=== PATIENT | female | born 1995 | race Two or more races ===

== ENCOUNTER 2023-02-19 08:05 | Inpatient (IN) | payer OTHER ==
[2023-02-19] MEDS: ELECTROLYTE-148 SOLN 1,000 ML IV SCH ×2 (09:00→17:50)
[2023-02-19 09:51] LABS: BASO % 0.4 % (0-2.0); EOS % 1.6 % (0-4.5); HEMATOCRIT 36.9 % (32.4-45.2); HEMOGLOBIN 12.2 GM/dL (10.7-15.3); LYMPH % 18.1 % (8-40); MCH 30.2 pg (25.7-33.7); MCHC 33.1 g/dl (32.0-36.0); MEAN CELL VOLUME 91.1 fl (80-96); MEAN PLT VOLUME 6.9 fl (7.5-11.1); NEUT % 71.9 % (42.8-82.8); PLATELET COUNT 189 10^3/uL (134-434); RBC 4.05 M/mm3 (3.60-5.2); RDW 14.3 % (11.6-15.6); WHITE BLOOD COUNT 5.6 K/mm3 (4.0-10.0)
[2023-02-19 09:52] LABS: POTASSIUM 3.4 mmol/L (3.5-5.1)
[2023-02-19 09:53] LABS: CALCIUM 8.6 mg/dL (8.5-10.1)
[2023-02-19 09:54] LABS: BLOOD UREA NITROGEN 11.1 mg/dL (7-18)
[2023-02-19 09:55] LABS: INR 0.95 (0.83-1.09)
[2023-02-19 09:57] LABS: CREATININE 0.6 mg/dL (0.55-1.3)
[2023-02-19 09:58] LABS: ACTIVATED PTT 25.5 SECONDS (25.2-36.5)
[2023-02-19] MEDS ORDERED: AMPICILLIN - 2 GM in SODIUM CHLORIDE 100 ML IVPB ONE (10:00)
[2023-02-19] MEDS ORDERED: OXYTOCIN 30 UNITS in 0.9% NS 30 UNIT/500 ML INFUS.BAG IVPB ONE ×2 (10:10→21:57)
[2023-02-19] MEDS ORDERED: AMPICILLIN SODIUM 2 GM VIAL ONE (10:10)
[2023-02-19] MEDS ORDERED: OXYTOCIN 30 UNITS in 0.9% NS 30 UNIT/500 ML INFUS.BAG IVPB SCH (10:10)
[2023-02-19 10:29] VITALS: BMI 25.7
[2023-02-19 12:48] LABS: HIV INTERPRETATION NEGATIVE (NEGATIVE)
[2023-02-19] MEDS ORDERED: AMPICILLIN SODIUM 1 GM VIAL ONE ×2 (13:35→18:28)
[2023-02-19] MEDS: AMPICILLIN - 1 GM in SODIUM CHLORIDE 100 ML IVPB SCH ×2 (14:05→18:34)
[2023-02-19] MEDS ORDERED: PROMETHAZINE HCL 25 MG/1 ML VIAL IVPB ONE (15:05)
[2023-02-19] MEDS ORDERED: BUTORPHANOL TARTRATE 2 MG/ML VIAL IVPB ONE (15:05)
[2023-02-19] MEDS ORDERED: FENTANYL/BUPIVACAINE/NS/PF - PCEA - 50 ML DISP.SYRIN EP ONE ×2 (16:57→22:03)
[2023-02-19] MEDS ORDERED: FENTANYL/BUPIVACAINE/NS/PF - PCEA - 50 ML DISP.SYRIN EP SCH (17:30)
[2023-02-19] MEDS ORDERED: NALOXONE HCL 0.4 MG/ML VIAL IVPUSH PRN (17:30)
[2023-02-19] MEDS ORDERED: ePHEDrine SULFATE 50 MG/1 ML AMPULE ONE (17:54)
[2023-02-19] MEDS ORDERED: SODIUM CHLORIDE 0.9% P/F 10 ML VIAL IJ ONE ×2 (17:55→22:12)
[2023-02-19] MEDS ORDERED: CITRIC ACID/SODIUM CITRATE 30 ML UNIT-DOSE CUP PO ONE (20:29)
[2023-02-19] MEDS ORDERED: ELECTROLYTE-148 SOLN 1,000 ML IV SCH (20:30)
[2023-02-19] MEDS ORDERED: SODIUM BICARBONATE 8.4% 50 MEQ/50 ML VIAL ONE ×2 (21:57→22:12)
[2023-02-19] MEDS ORDERED: morphine SULFATE/PF 1 MG/2 ML (2cc Syringe - QUVA) ONE (22:12)
[2023-02-19] MEDS ORDERED: ceFAZolin SODIUM 1 GM VIAL ONE (22:12)
[2023-02-19] MEDS ORDERED: FENTANYL CITRATE/PF 50 MCG/ML VIAL ONE ×2 (22:12→22:39)
[2023-02-19] MEDS ORDERED: ONDANSETRON 4 MG/2 ML VIAL ONE (22:12)
[2023-02-19] MEDS ORDERED: KETOROLAC TROMETHAMINE 30 MG/1 ML VIAL ONE (23:21)
[2023-02-19] MEDS ORDERED: morphine SULFATE/PF 1 MG/2 ML (2cc Syringe - QUVA) IT ONE (23:47)
[2023-02-19] MEDS ORDERED: ONDANSETRON 4 MG/2 ML VIAL IVPUSH PRN (23:47)
[2023-02-19] MEDS ORDERED: ACETAMINOPHEN 1000 MG/100 ML BAG IVPB PRN (23:48)
[2023-02-19] MEDS ORDERED: METHYLERGONOVINE MALEATE 0.2 MG/1 ML AMP IM PRN (23:59)
[2023-02-19] MEDS ORDERED: ACETAMINOPHEN 325 MG TABLET (FP) PO PRN (23:59)
[2023-02-19] MEDS ORDERED: IBUPROFEN 800 MG/8 ML IJ IVPB PRN (23:59)
[2023-02-20] MEDS ORDERED: OXYTOCIN 20 UNITS in 0.9% NS 20 UNIT/1,000 ML INFUS.BAG IV ONE (01:51)
[2023-02-20] MEDS: OXYTOCIN 20 UNITS in 0.9% NS 20 UNIT/1,000 ML INFUS.BAG IV SCH ×2 (01:55→09:52)
[2023-02-20] MEDS: PRENATAL VITAMINS W/ FOLIC ACID TABLET (FP) PO SCH (09:50)
[2023-02-20] MEDS: FERROUS SO4 325 MG TABLET (FP) PO SCH ×2 (09:50→21:07)
[2023-02-20 09:59] LABS: BASO % 0.3 % (0-2.0); EOS % 0.6 % (0-4.5); HEMATOCRIT 34.6 % (32.4-45.2); HEMOGLOBIN 11.6 GM/dL (10.7-15.3); LYMPH % 10.4 % (8-40); MCH 30.2 pg (25.7-33.7); MCHC 33.4 g/dl (32.0-36.0); MEAN CELL VOLUME 90.3 fl (80-96); MEAN PLT VOLUME 7.2 fl (7.5-11.1); NEUT % 82.7 % (42.8-82.8); PLATELET COUNT 165 10^3/uL (134-434); RBC 3.83 M/mm3 (3.60-5.2); RDW 14.1 % (11.6-15.6); WHITE BLOOD COUNT 9.7 K/mm3 (4.0-10.0)
[2023-02-20] MEDS ORDERED: oxyCODONE HCL 5 MG TABLET PO PRN ×2 (11:59)
[2023-02-20] MEDS: IBUPROFEN 600 MG TABLET (FP) PO PRN ×2 (13:26→21:10)
[2023-02-20] MEDS: SENNOSIDES/DOCUSATE COMBO (SENNA PLUS) TABLET (UD) PO PRN (21:06)
[2023-02-20] MEDS: SIMETHICONE 80 MG TAB.CHEW (FP) PO PRN (21:06)
[2023-02-20] MEDS ORDERED: BISACODYL 10 MG SUPP.RECT RC PRN (23:59)
[2023-02-21] MEDS: SIMETHICONE 80 MG TAB.CHEW (FP) PO PRN ×2 (02:42→19:35)
[2023-02-21] MEDS: IBUPROFEN 600 MG TABLET (FP) PO PRN ×4 (02:42→19:35)
[2023-02-21 09:01] VITALS: RESP 16
[2023-02-21] MEDS: FERROUS SO4 325 MG TABLET (FP) PO SCH ×2 (10:06→22:42)
[2023-02-21] MEDS: PRENATAL VITAMINS W/ FOLIC ACID TABLET (FP) PO SCH (10:06)
[2023-02-21] MEDS: SENNOSIDES/DOCUSATE COMBO (SENNA PLUS) TABLET (UD) PO PRN (22:42)
[2023-02-22] MEDS: SIMETHICONE 80 MG TAB.CHEW (FP) PO PRN ×2 (00:40→06:26)
[2023-02-22] MEDS: IBUPROFEN 600 MG TABLET (FP) PO PRN ×2 (00:40→06:26)
[2023-02-22 08:40] VITALS: BP 100/62; PULSE 71; TEMP 98.8
[2023-02-22] MEDS: FERROUS SO4 325 MG TABLET (FP) PO SCH (10:12)
[2023-02-22] MEDS: PRENATAL VITAMINS W/ FOLIC ACID TABLET (FP) PO SCH (10:12)
== END 2023-02-22 12:30 | disposition home or self-care (01) | DRG 540 ==
LOC: JLDR 08:05 → J3W 02-20 02:01
PROVIDERS: ADMIT Obstetrics & Gynecology; ATTEND Obstetrics & Gynecology
PROC: 10D00Z1 Extraction of Products of Conception, Low, Open Approach (ICD-10-PCS; principal; 2023-02-20)
DX: O48.0 Post-term pregnancy (principal); O76 Abnormality in fetal heart rate and rhythm complicating labor and delivery; Z3A.40 40 weeks gestation of pregnancy; Z37.0 Single live birth
CPT/HCPCS: 36415; 80048; 85025; 85610; 85730; 86780; 86850; 86900; 86901; 87389; 88307-TC